=== PATIENT | male | born 1995 | race Caucasian/White ===

== ENCOUNTER 2017-09-04 18:35 | Emergency (ER) | payer BC ==
[~2017-09-04] VITALS: Ht 182.9 cm; Wt 62.6 kg
[2017-09-04 19:41] LABS: ADD MIUA? YES; BILIRUBIN NEGATIVE; BLOOD NEGATIVE; COLOR AMBER ((YELLOW)); GLUCOSE (STRIP) NEGATIVE; KETONES NEGATIVE; LEUKOCYTES NEGATIVE; NITRITE POSITIVE; PROTEIN (STRIP) 30; SPECIFIC GRAVITY 1.031 (1.000-1.030)
[2017-09-04 19:54] LABS: HEMATOCRIT 44.3 % (38.0-50.0); MCH 30.9 PG (29.0-34.0); MCHC 34.8 G/DL (30.0-36.0); MCV 88.8 FL (86-99); MEAN PLAT.VOLUME 10.8 uM^3 (9.0-12.4); PLATELET COUNT 209 K/uL (156-360); RBC DIS.WIDTH-CV 12.1 % (11.8-14.6); RED BLOOD COUNT 4.99 M/uL (4.00-5.50); WHITE BLOOD COUNT 6.3 K/uL (4.1-10.2)
[2017-09-04 20:01] LABS: BACTERIA RARE /HPF; EPITHELIAL CELLS NONE SEEN /HPF; MUCUS TRACE /LPF; UCUL ADDED? YES; UNCLASSIFIED CRYSTALS 2+ /HPF; WHITE BLOOD CELLS 30-40 /HPF (0-5)
[2017-09-04 20:05] LABS: CHLORIDE 105 mEq/L (99-109); POTASSIUM 4.2 mEq/L (3.7-5.4); SODIUM 142 mEq/L (136-147)
[2017-09-04 20:06] LABS: GLUCOSE 80 mg/dL (70-99)
[2017-09-04 20:08] LABS: ANION GAP 9 MEQ/L (2-14)
[2017-09-04 20:10] LABS: GFR ESTIMATE (CALCULATED) > 59 mL/min/
[2017-09-04 20:11] LABS: UREA NITROGEN (BUN) 15 mg/dL (9-23)
[2017-09-04] MEDS ORDERED: CIPRO500 MG PO (20:40)
[2017-09-04] MEDS ORDERED: DOXYCYCLINE MO100 MG PO (20:40)
[2017-09-04] MEDS ORDERED: PYRIDIUM200 MG PO (20:45)
[2017-09-04 20:59] VITALS: BP 119/81
== END 2017-09-04 21:00 | disposition home or self-care (01) ==
LOC: EME 18:35
PROVIDERS: Emergency Medicine
DX: N39.0 Urinary tract infection, site not specified (principal); Z87.891 Personal history of nicotine dependence
CPT/HCPCS: 76770; 80048; 81003; 85027; 87086; 99281; 99284; J0696